=== PATIENT | female | born 1965 | race Caucasian/White ===

== ENCOUNTER 2018-04-05 15:33 | Emergency (ER) | payer MEDICARE, OTHER ==
[~2018-04-05] VITALS: Ht 167.6 cm; Wt 65.5 kg
[2018-04-05 15:54] VITALS: BP 162/102; PULSE 108; RESP 20; TEMP 98.8; O2SAT 97
[2018-04-05 16:36] VITALS: BP 162/102; PULSE 108; RESP 20; TEMP 98.8; O2SAT 97
--- NOTE | 2018-04-05 16:50 | PD ---
HPI Chief Complaint: Psychiatric Symptoms Time Seen by Provider: 16:22 Travel History International Travel<30 days: No Contact w/Intl Traveler<30days: No Traveled to known affect area: No History of Present Illness HPI 52-year-old female presents to the emergency department under [place] act. According to the law enforcement report patient was surfing, hit her head, and was found intoxicated. On my examination the patient states that she did not hit her head while she was surfing. She said she was having an asthma attack and when she went to get her inhaler her bag was gone and so she flagged down someone to help her and she was sweating so they put ice on her head. She reports taking some additional marijuana earlier today that she is prescribed. She otherwise denies other illicit drug use. She reports having 2 alcoholic beverages this morning before noon, but no more after that. She denies change in mentation, confusion, disorientation, focal deficits or weakness. Denies lightheadedness, dizziness, headache. Denies psych history. Denies suicidal or homicidal ideations. Denies auditory or visual hallucinations. Denies chest pain, shortness of breath, abdominal pain, change in urine or stool. Onset unknown. Duration unknown. Symptoms are moderate to severe in severity. No known aggravating or relieving factors. Has a primary care provider in [place]. Allergies to MSG. History of asthma. Has no other medical complaints. No other modifying factors or associated signs and symptoms. PFSH Past Medical History ?: Not LMP: 2015 Social History Tobacco Use: No Allergies-Medications (Allergen,Severity, Reaction): Coded Allergies: aspirin (Verified Allergy, Intermediate, 04/05/18) I get tremors hydrocodone (Verified Allergy, Intermediate, excessive itch and rash, ) acetaminophen (Verified Adverse Reaction, Intermediate, liver failure, 04/05) celecoxib (Verified Adverse Reaction, Intermediate, vomiting, 04/05/18) duloxetine (Verified Adverse Reaction, Intermediate, burning up neck, ) ibuprofen (Verified Adverse Reaction, Intermediate, liver failure, 04/05/18) glucosamine (Verified Adverse Reaction, Mild, 04/05/18) levofloxacin (Verified Adverse Reaction, Unknown, 04/05/18) Uncoded Allergies: msg (Allergy, Intermediate, 04/05/18) pet dander (Allergy, Mild, 04/05/18) polen (Allergy, Mild, 04/05/18) Reported Meds & Prescriptions Reported Meds & Active Scripts Active Reported Ventolin Hfa 18 GM Inh (Albuterol Sulfate) 90 Mcg/Act Aer 1 Puff INH Q4H PRN Symbicort Inh (Budesonide/Formoterol Fumarate) 80-4.5 Mcg/Act Aero 2 Puff INH Q12HR Review of Systems Except as stated in HPI: all other systems reviewed are Neg Physical Exam Narrative GENERAL: Well-nourished, well-developed female patient, in no acute distress SKIN: Warm and dry. HEAD: Atraumatic. Normocephalic. No facial droop noted. Tongue midline. Shoulder shrug equal. Finger to nose test normal. EYES: Pupils equal and round at 3 mm with brisk reaction. No scleral icterus. No injection or drainage. PERRLA. EOMI. ENT: Mucosa pink and moist. Airway patent. NECK: Trachea midline. No lymphadenopathy. CARDIOVASCULAR: Regular rate and rhythm. No murmur appreciated. RESPIRATORY: Clear to auscultation. Breath sounds equal bilaterally. No wheezes , rales, or rhonchi heard. GASTROINTESTINAL: Abdomen soft, non-tender, nondistended. Positive bowel sounds. No hepato-splenomegaly, or palpable masses. No guarding. MUSCULOSKELETAL: No obvious deformities. No clubbing. No cyanosis. No edema. NEUROLOGICAL: Hyperactive. Needs to be redirected when asked questions. awake and alert. Oriented 4. No obvious cranial nerve deficits. Motor grossly within normal limits. Normal speech. No ataxia. No mid-line drift. No upper or lower extremity drift. 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 Sensory intact and equal bilaterally. Moves all extremities. Active plantar and dorsiflexion and strength equal bilaterally. 5/5 strength to all extremities. PSYCHIATRIC: Appropriate mood and affect; insight and judgment normal. Data Data Last Documented VS Orders Orders Ct Brain W/O Iv Contrast(Rout) (04/05/18 ) Drug Screen, Random Urine (04/05/18 16:42) Alcohol (Ethanol) (04/05/18 16:42) Ed Discharge Order (04/05/18 22:35) Labs Laboratory Tests Test 04/05/18 16:20 04/05/18 17:10 Ethyl Alcohol Level 170 MG/DL Urine Opiates Screen NEG Urine Barbiturates Screen NEG Urine Amphetamines Screen NEG Urine Benzodiazepines Screen NEG Urine Cocaine Screen NEG Urine Cannabinoids Screen POS MDM Medical Decision Making Medical Screen Exam Complete: Yes Emergency Medical Condition: Yes Medical Record Reviewed: Yes Differential Diagnosis Drug intoxication, alcohol intoxication, head injury, medical clearance Narrative Course 52-year-old female presents under [facility] act. It is suspected that she hit her head while she was surfing today, although the patient denies this allegation. She has history of asthma and apparently was having an asthma attack when a bystander placed ice on her head because she was sweating. Her lungs are clear and equal throughout at this time. She denies shortness of breath or wheezing. She does report taking medical marijuana that was prescribed to her earlier today. She reports drinking 2 alcoholic beverages before noon. She is alert and oriented. Neuro exam is unremarkable. She is acting slightly bizarre and needs to be redirected when I ask her questions. She is answer them appropriately, but her responses are very detailed and she is not answering questions directly. She denies suicidal or homicidal ideations. Denies psychiatric history. I will obtain a CT of the head to rule out any acute findings, secondary to the concern of her hitting her head while surfing. CT head, drug and alcohol screen ordered. 1900: Positive for cannabinoids. EtOH 170. CT head with no acute findings. Patient was awake and alert on my previous examination. I feel that she was clinically sober at the time of my examination. 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 1936: No family or friend were able to be contacted. The patient will be given time to sleep and contact family/friend for a safe ride home. 2100: Dr. Escobar is aware of the patient and will discharge the patient when she is clinically sober or has a safe ride home. Diagnosis Primary Impression: Alcohol intoxication Qualified Codes: F10.920 - Alcohol use, unspecified with intoxication, uncomplicated Additional Impression: Marijuana use Referrals: [facility] Primary Care Physician [facility] Patient Instructions: Abuse of Alcohol (ED), Alcohol Dependence (ED), Alcohol Intoxication (ED), Cannabis Abuse (ED), General Instructions Additional Instructions: Contract safety to your self and others Stop drinking alcohol or drink alcohol in moderation Follow-up in the community for support, such as with alcoholic's Anonymous Follow-up with primary care provider Follow-up with Jimi Hawley/[facility] Return to the emergency department immediately with worsening of symptoms Med/Other Pt SpecificInfo: No Change to Meds, No Meds Exist/No RX given Disposition: 01 DISCHARGE HOME Condition: Stable Anne Rizzo Apr 05, 2018 16:50
[2018-04-05] MEDS ORDERED: SYMB80AE INH (17:03)
[2018-04-05] MEDS ORDERED: VENTAER INH (17:04)
--- NOTE | 2018-04-05 17:26 | RADRPT ---
EXAM DATE: 04/05/2018 5:21 PM EDT AGE/SEX: 52 years / Female INDICATIONS: Trauma, possible fall today. CLINICAL DATA: This is the patient's initial encounter. Patient reports that signs and symptoms have been present for 1 day and indicates a pain score of 3/10. MEDICAL/SURGICAL HISTORY: None. None. RADIATION DOSE: 51.47 CTDI (mGy) COMPARISON: No prior [facility] exams available for comparison. TECHNIQUE: CT of the head without contrast. Using automated exposure control and adjustment of the mA and/or kV according to patient size, radiation dose was kept as low as reasonably achievable to ob tain optimal diagnostic quality images. FINDINGS: Cerebrum: The ventricles are normal for age. No evidence of midline shift, mass lesion, hemorrhage or acute infarction. No extraaxial fluid collections are seen. Posterior Fossa: The cerebellum and brainstem are intact. The 4th ventricle is midline. The cerebe llopontine angle is unremarkable. Extracranial: The visualized portion of the orbits is intact. Skull: The calvaria is intact. No evidence of skull fracture. CONCLUSION: 1. Negative noncontrast head CT. Electronically signed by: Alex Carrion MD 04/05/2018 5:24 PM EDT
[2018-04-05 18:43] VITALS: BP 157/93; PULSE 86; RESP 18; O2SAT 99
== END 2018-04-05 22:59 | disposition home or self-care (01) ==
LOC: NEDAMB 15:33 → NEPD 22:59
DX: F10.129 Alcohol abuse with intoxication, unspecified (principal); F12.90 Cannabis use, unspecified, uncomplicated; J45.909 Unspecified asthma, uncomplicated; Z88.6 Allergy status to analgesic agent; Z88.5 Allergy status to narcotic agent; Z88.8 Allergy status to other drugs, medicaments and biological substances; Z79.51 Long term (current) use of inhaled steroids
CPT/HCPCS: 70450; 80307; 99283